=== PATIENT | female | born 1960 | race American Indian/Alaskan Native ===

== ENCOUNTER 2019-08-16 07:55 | Emergency (ER) | payer OTHER, MEDICARE ==
--- NOTE | 2019-08-16 08:51 | Emergency Department Report ---
ED Psych HPI - General Chief Complaint: Extremity Problem,Nontraumatic Stated Complaint: CHRONIC KNEE PAIN Time Seen by Provider: 08/16/19 08:40 Source: patient Mode of arrival: Ambulatory - History of Present Illness Initial Comments: CC: "I think I need an evaluation." HPI: Mrs. Reyes is a 58 yo female with hx of schiizophrenia. She told triage personnel today that she has pain in her leg from walking all night. However, she speaks on many subjects. She speaks of being evaluated at [place]. Denies SI/HI. But appears distracted. Complaint: other (disorganized thoughts) -: unknown Associated Psychiatric Symptoms: racing thoughts Quality: constant Improves With: none Worsens With: none Context: other (unknown) Associated Symptoms: denies other symptoms Treatments Prior to Arrival: none - Related Data Home Medications Medication Instructions Recorded Confirmed Last Taken No Known Home Medications [No 08/16/19 08/16/19 Unknown Reported Home Medications] Allergies Allergy/AdvReac Type Severity Reaction Status Date / Time No Known Allergies Allergy Unverified 10/26/18 05:11 ED Review of Systems ROS: Stated complaint: CHRONIC KNEE PAIN Other details as noted in HPI Comment: All other systems reviewed and negative Constitutional: denies: fever, malaise Respiratory: denies: cough Cardiovascular: denies: chest pain ED Past Medical Hx - Past Medical History Previous Medical History?: Yes Hx Diabetes: Yes Hx Psychiatric Treatment: Yes Additional medical history: Diabetes, schizophrenia - Surgical History Past Surgical History?: Yes Additional Surgical History: Left leg surgery due to fracture - Social History Smoking Status: Current Every Day Smoker Substance Use Type: None - Medications Home Medications: Home Medications Medication Instructions Recorded Confirmed Last Taken Type No Known Home Medications [No 08/16/19 08/16/19 Unknown History Reported Home Medications] ED Physical Exam - General Limitations: No Limitations General appearance: alert, in no apparent distress - Head Head exam: Present: atraumatic, normocephalic - Eye Eye exam: Present: normal appearance - ENT ENT exam: Present: mucous membranes moist - Neck Neck exam: Present: normal inspection, full ROM - Respiratory Respiratory exam: Present: normal lung sounds bilaterally. Absent: respiratory distress, wheezes, rales, rhonchi - Cardiovascular Cardiovascular Exam: Present: regular rate, normal rhythm, normal heart sounds. Absent: systolic murmur, diastolic murmur, rubs, gallop - GI/Abdominal GI/Abdominal exam: Present: soft. Absent: distended, tenderness, guarding, rebound - Extremities Exam Extremities exam: Present: normal inspection - Back Exam Back exam: Present: normal inspection - Neurological Exam Neurological exam: Present: alert, oriented X3 - Psychiatric Psychiatric exam: Present: flat affect, other (disorganized thought loose associations circular speech appears to respond to internal stimuli) - Skin Skin exam: Present: warm, dry, intact, normal color. Absent: rash ED Course Vital Signs 08/16/19 08/16/19 08/16/19 08:04 11:15 15:07 Temperature 98.0 F 98.7 F 97.9 F Pulse Rate 85 75 76 Respiratory 18 16 16 Rate Blood Pressure 153/79 Blood Pressure 144/85 132/73 [144/85] O2 Sat by Pulse 97 98 98 Oximetry 08/16/19 08/17/19 19:57 01:00 Temperature 98.3 F 97.6 F Pulse Rate 83 67 Respiratory 20 18 Rate Blood Pressure Blood Pressure 120/74 116/74 [144/85] O2 Sat by Pulse 98 99 Oximetry ED Medical Decision Making - Lab Data Result diagrams: 08/16/19 14:48 08/16/19 08:58 Laboratory Results - last 24 hr 08/16/19 08/16/19 08/16/19 08:58 08:58 08:58 Sodium 141 Potassium 3.9 Chloride 101.7 Carbon Dioxide 21 L Anion Gap 22 BUN 16 Creatinine 0.7 Estimated GFR > 60 BUN/Creatinine Ratio 23 Glucose 58 L Calcium 9.3 Total Bilirubin 0.40 AST 32 ALT 22 Alkaline Phosphatase 85 Total Protein 7.9 Albumin 4.6 Albumin/Globulin Ratio 1.4 Salicylates < 0.3 L Acetaminophen < 5.0 L Plasma/Serum Alcohol 08/16/19 08:58 Sodium Potassium Chloride Carbon Dioxide Anion Gap BUN Creatinine Estimated GFR BUN/Creatinine Ratio Glucose Calcium Total Bilirubin AST ALT Alkaline Phosphatase Total Protein Albumin Albumin/Globulin Ratio Salicylates Acetaminophen Plasma/Serum Alcohol < 0.01 - Medical Decision Making Mrs. Reyes has hx of schizophrenia. She presents with acute psychosis. Due to inability to care for self and possibility of further decline, involuntary hold implemented 1013 protocol. She is medically clear for psychiatric care. Awaiting further treatment recommendations from our psychiatric team. I have reviewed the lab studies obtained. Mrs. Reyes was transferred to [facility] for further inpatient psychiatric care. Critical care attestation.: If time is entered above; I have spent that time in minutes in the direct care of this critically ill patient, excluding procedure time. ED Disposition Clinical Impression: Acute psychosis, Schizophrenia Disposition: [id number] PSY HOSP/PSY UNIT Is pt being admited?: No Does the pt Need Aspirin: No Condition: Stable
[2019-08-16 09:45] LABS: Alanine Aminotransferase 22 units/L (7-56); Albumin 4.6 g/dL (3.9-5); BUN/Creatinine Ratio 23; Blood Urea Nitrogen 16 mg/dL (7-17); Calcium 9.3 mg/dL (8.4-10.2); Hemolysis Index 8
--- NOTE | 2019-08-16 10:17 | Consultation ---
History of Present Illness - Reason for Consult Consult date: 08/16/19 Reason for consult: Mental Health Evaluation Requesting physician: RIAZ ROYAL - Chief Complaint Chief complaint: "I was put out" - History of Present Psychiatric Illness 58 y.o. AA emerita who presented to the ER acute psychosis. Today the patient was calm and cooperative during the assessment. She was asked several questions about why she came to the ER and her mental health hx, her answers were not logical. She stated she was evicted from a residence and was staying with her brother, but could not explain in detail the entire situation. Throughout the interview, she appeared to be responding to some type of stimuli and had to be redirected to keep her on topic. She stated that she have been up all night walking. Overall, the patient is a poor historian at this time. The patient denies SI/HI's. The patient stated that she was a patient at [facility] Oct 2018. Medications and Allergies Allergies Allergy/AdvReac Type Severity Reaction Status Date / Time No Known Allergies Allergy Unverified 10/26/18 05:11 Past psychiatric history - Past Medical History Past Medical History: diabetes Past Surgical History: No surgical history, Other (Left knee surgery) - past Psychiatric treatment and history psychiatric treatment history: inpatient psy services in the past. Denies a fam psy hx. - Social History Social history: other (Homeless) Mental Status Exam - Vital signs Last Vital Signs Temp 98.0 F 08/16/19 08:04 Pulse 85 08/16/19 08:04 Resp 18 08/16/19 08:04 BP 153/79 08/16/19 08:04 Pulse Ox 97 08/16/19 08:04 - Exam Narrative exam: MSE: Appearance: calm,, cooperative Behavior: poor eye contact Speech: regular rate and loud tone Mood: "tired" Affect: congruent to mood Thought Process: disorganized Thought Content: denies Si/HI's, delusional, responding to some type of stimuli Motor Activity: ambulatory Cognition: A/Ox 3 Insight: poor Judgment: poor + Results Result Diagrams: 08/16/19 08:58 Abnormal lab results 08/16/19 08/16/19 08/16/19 Range/Units 08:58 08:58 08:58 Carbon Dioxide 21 L (22-30) mmol/L Glucose 58 L (65-100) mg/dL Salicylates < 0.3 L (2.8-20.0) mg/dL Acetaminophen < 5.0 L (10.0-30.0) ug/mL All other labs normal. Assessment and Plan Assessment and plan: Impression: Unspecified Psychosis. Today the patient was calm, but disorganized during the assessment. DDx: Schizophrenia, Bipolar DO with psychosis Recommendation/Plan: Continue 1013 and start Zyprexa 5 mg PO HS for psychosis and Melatonin 5 mg PO HS PRN for sleep. Attempted to discuss possible metabolic side effects of Zyprexa with the patient. Baseline A1c/Lipid Panel ordered for the AM. Dispo: The patient was referred to inpatient psy services. Will staff with Dr Juwan Pantoja.
[2019-08-16] MEDS ORDERED: MELATONIN PO PRN (10:20)
[2019-08-16 13:27] LABS: Bacteria,Urine 1+ /HPF (Negative); Bilirubin,Urine NEG (Negative); Blood,Urine NEG (Negative); Color,Urine Yellow (Yellow); Mucus,Urine FEW /HPF; Protein,Urine <15 mg/dL mg/dL (Negative)
[2019-08-16 13:29] LABS: Amphetamine Screen,Urine PRESUMPTIVE NEGATIVE; Benzodiazepines Screen,Urine PRESUMPTIVE NEGATIVE; Cannabinoid Screen,Urine PRESUMPTIVE NEGATIVE; Cocaine Screen,Urine PRESUMPTIVE NEGATIVE; Methadone Screen,Urine PRESUMPTIVE NEGATIVE; Opiate Screen,Urine PRESUMPTIVE NEGATIVE
[2019-08-16 15:05] LABS: Hematocrit 37.5 % (30.3-42.9); Hemoglobin 12.2 gm/dl (10.1-14.3); Mean Corpuscular HGB Conc 33 % (30-34); Mean Corpuscular Volume 88 fl (79-97); Platelet Count 157 K/mm3 (140-440); Red Blood Count 4.24 M/mm3 (3.65-5.03); Red Cell Distribution Width 15.6 % (13.2-15.2)
[2019-08-16 17:25] LABS: Eosinophils % (Manual) 0 % (0.0-4.3); Total Cells Counted 100
[2019-08-16 17:26] LABS: Ovalocytes Few; Platelet Estimate Consistent w Auto; Poikilocytosis Few
[2019-08-17 02:56] VITALS: BP 116/74
== END 2019-08-17 03:00 ==
LOC: ED 07:55
DX: F23 Brief psychotic disorder (principal); G89.29 Other chronic pain; M79.662 Pain in left lower leg; M79.661 Pain in right lower leg; E11.9 Type 2 diabetes mellitus without complications; F17.200 Nicotine dependence, unspecified, uncomplicated; Z98.890 Other specified postprocedural states
CPT/HCPCS: 36415; 80053; 80307; 80320; 81001; 85007; 85025; 87086; G0480